=== PATIENT | male | born 1990 | race Caucasian/White ===

== ENCOUNTER 2025-08-15 06:20 | Day surgery (SDC) | payer BC, SELFPAY | END 2025-08-15 13:35 | disposition home or self-care (01) | LOC: GI 06:20 | PROVIDERS: ATTENDING PHYSICIAN Surgery | DX: Z12.11 Encounter for screening for malignant neoplasm of colon (principal); K57.30 Diverticulosis of large intestine without perforation or abscess without bleeding; Z86.0100 Personal history of colon polyps, unspecified; K63.89 Other specified diseases of intestine; K57.32 Diverticulitis of large intestine without perforation or abscess without bleeding | CPT/HCPCS: G0105 ==